=== PATIENT | male | born 1965 | race African-American/Black ===

== ENCOUNTER 2017-10-11 17:34 | Outpatient (RCR) | payer OTHER, SELFPAY | END 2017-10-19 23:59 | LOC: NS 17:34 | PROVIDERS: Family Provider Internal Medicine; PCP Internal Medicine; Visit Provider Internal Medicine | DX: E66.09 Other obesity due to excess calories (principal); Z68.34 Body mass index [BMI] 34.0-34.9, adult; I10 Essential (primary) hypertension; R73.02 Impaired glucose tolerance (oral); Z71.3 Dietary counseling and surveillance | CPT/HCPCS: 97803 ==

== ENCOUNTER 2017-11-08 17:12 | Outpatient (RCR) | payer OTHER, SELFPAY ==
[2016-10-10 01:48] VITALS: BMI 34.4
[2016-10-10 03:46] VITALS: BP 132/75
== END 2017-11-16 23:59 ==
LOC: NS 17:12
PROVIDERS: Family Provider Internal Medicine; PCP Internal Medicine; Visit Provider Internal Medicine
DX: E66.09 Other obesity due to excess calories (principal); Z68.34 Body mass index [BMI] 34.0-34.9, adult; I10 Essential (primary) hypertension; R73.02 Impaired glucose tolerance (oral); Z71.3 Dietary counseling and surveillance
CPT/HCPCS: 97803

== ENCOUNTER 2017-11-22 17:15 | Outpatient (RCR) | payer OTHER, SELFPAY | END 2017-12-17 23:59 | LOC: NS 17:15 | PROVIDERS: Family Provider Internal Medicine; PCP Internal Medicine; Visit Provider Internal Medicine | DX: E66.09 Other obesity due to excess calories (principal); Z68.34 Body mass index [BMI] 34.0-34.9, adult; I10 Essential (primary) hypertension; R73.02 Impaired glucose tolerance (oral); Z71.3 Dietary counseling and surveillance | CPT/HCPCS: 97803 ==

== ENCOUNTER 2017-12-27 17:27 | Outpatient (RCR) | payer OTHER, SELFPAY | END 2018-01-16 23:59 | LOC: NS 17:27 | PROVIDERS: Family Provider Internal Medicine; PCP Internal Medicine; Visit Provider Internal Medicine | DX: E66.09 Other obesity due to excess calories (principal); Z68.34 Body mass index [BMI] 34.0-34.9, adult; I10 Essential (primary) hypertension; R73.02 Impaired glucose tolerance (oral); Z71.3 Dietary counseling and surveillance | CPT/HCPCS: 97803 ==

== ENCOUNTER 2018-01-25 07:55 | Outpatient (RCR) | payer OTHER, SELFPAY | END 2018-01-25 07:56 | disposition home or self-care (01) | LOC: NS 07:55 | PROVIDERS: Family Provider Internal Medicine; PCP Internal Medicine; Visit Provider Internal Medicine | DX: E66.09 Other obesity due to excess calories (principal); Z68.34 Body mass index [BMI] 34.0-34.9, adult; I10 Essential (primary) hypertension; R73.02 Impaired glucose tolerance (oral); Z71.3 Dietary counseling and surveillance | CPT/HCPCS: 97803 ==

== ENCOUNTER 2020-11-28 09:36 | Outpatient (RCR) | payer OTHER, SELFPAY ==
[2016-10-10 01:48] VITALS: BMI 34.4
[2020-11-28] MEDS: COVID-19 VACC, MRNA(PFIZER)/PF 30 MCG/0.3 ML SYRINGE IM (17:21)
[2020-12-19] MEDS: COVID-19 VACC, MRNA(PFIZER)/PF 30 MCG/0.3 ML SYRINGE IM (16:42)
== END 2021-02-24 23:59 ==
LOC: IMMUN 09:36
PROVIDERS: PCP Internal Medicine; Visit Provider Family Medicine
DX: Z23 Encounter for immunization (principal)
CPT/HCPCS: 0001A; 0002A; 91300

== ENCOUNTER 2021-03-07 10:52 | Emergency (ER) | payer OTHER, SELFPAY ==
[2021-03-07 10:53] VITALS: BP 203/108; PULSE 76; RESP 16; TEMP 36.1; O2SAT 96; BMI 36.6
--- NOTE | 2021-03-07 11:09 | EKG12_ITS ---
Test Reason : CP Blood Pressure : / mmHG Vent. Rate : 071 BPM Atrial Rate : 071 BPM P-R Int : 154 ms QRS Dur : 088 ms QT Int : 366 ms P-R-T Axes : 061 034 040 degrees QTc Int : 397 ms Normal sinus rhythm Minimal voltage criteria for LVH, may be normal variant Borderline ECG Confirmed by ABEBE GOLDBERG, MEGAN ([id number]), brands editor ELY NESBITT ([id number]) on 03/09/2021 10:40:58 A M Referred By: ERMIAS Confirmed By:YESENIA LOMAS MD
--- NOTE | 2021-03-07 11:09 | CT_ITS ---
STUDY: CT BRAIN WITHOUT CONTRAST REASON FOR EXAM: Male, 55 years old. Paresthesias. RADIATION DOSAGE (If Supplied By Facility): CTDIvol = ( 44.99 ) mGy, DLP = ( 798.92 ) mGycm TECHNIQUE: Transaxial CT imaging of the brain was performed without administration of intravenous contrast material. Individualized dose optimization techniques were used for this CT. COMPARISON: No relevant priors. FINDINGS: Normal soft tissue structures. Normal calvarium. Normal size ventricles and extra-axial spaces for the patient''s age. Normal white matter tracts of the cerebral hemispheres. Small calcification in the left roblero radiata. There are also parenchymal calcifications in the right sylvian fissure and within the sulci of the right temporal and parietal lobes. Normal basal ganglia and thalami. Normal brainstem. Normal cerebellum. There is no intracranial hemorrhage. There are no findings of an acute ischemic infarction. Normal visualized paranasal sinuses. CT/Brain/Head without Contrast IMPRESSION: 1. No evidence for acute intracranial or calvarial abnormality. 2. Multiple small calcifications within the brain. Question neural cysticercosis or toxoplasmosis. Electronically Signed: Bartolo Peres DO at 12:29 EDT Tel [phone], Service support ,
--- NOTE | 2021-03-07 11:17 | EX.ED.DYSGE1 ---
HPI History of Present Illness Chief Complaint: Neuro S/Sx Informant: patient Onset/Context/Timing Onset: Days (2) Context: Gradual Onset Timing: Continuous Quality: Pressure Location: Chest, head Worsened by: Nothing Relieved by: Xanax Narrative Narrative: Patient presents with chest pain and headache and left facial numbness that began 2 days ago. Patient states it resolved 2 days ago but then came back again today. Patient checked his blood pressure at home and it was 212/112. Patient states that when he had the episode 2 days ago he took a Xanax which relieved his symptoms. Patient describes his pain as a pressure over the left side of his chest. Patient also admits to some pressure in his head. Patient states he did take his blood pressure medicines this morning. Patient denies any shortness of breath or cough. Patient denies any fevers or chills. Patient denies any diaphoresis. [facility] Medical History (Updated 03/07/21 @ 11:[address] Willie Zarate DO) Anxiety Diabetes mellitus History of hiatal hernia Hypertension Home Medications alprazolam 0.5 mg PO PRN PRN 09/19/14 [History Last Taken Unknown] aspirin 162 mg PO DAILY@0800 09/19/14 [History Last Taken 07/07/16] lisinopril 10 mg PO DAILY 09/19/14 [History Last Taken 07/07/16] ascorbic acid (vitamin C) [Vitamin C] 500 mg PO DAILY 03/07/21 [History Last Taken Unknown] bisoprolol-hydrochlorothiazide 1 tab PO DAILY 03/07/21 [History Last Taken Unknown] buspirone [BuSpar] 30 mg PO BID 03/07/21 [History Last Taken Unknown] ergocalciferol (vitamin D2) [Vitamin D2] 10 mcg PO DAILY 03/07/21 [History Last Taken Unknown] fluoxetine [Prozac] 20 mg PO DAILY 03/07/21 [History Last Taken Unknown] pantoprazole 40 mg PO DAILY 03/07/21 [History Last Taken Unknown] vitamin B complex 1 cap PO DAILY 03/07/21 [History Last Taken Unknown] Allergy/AdvReac Type Severity Reaction Status Date / Time codeine AdvReac Nausea Verified 03/07/21 11:01 Surgical History History of nasal surgery Social History Smoking Status: Never smoker ROS ROS ED Constitutional Constitutional ED: Denies chills or fever(s) Eyes Eyes: Denies blurry vision or change in vision ENT ENT ED: Denies rhinorrhea or sore throat Cardiovascular Cardiovascular: Reports chest pain; Denies palpitations Respiratory/Chest Respiratory/Chest: Denies cough or dyspnea Gastrointestinal Gastrointestinal: Denies nausea or vomiting Genitourinary Genitourinary ED: Reports urinary frequency; Denies dysuria or hematuria Musculoskeletal Musculoskeletal: Denies back pain or neck pain Integumentary Denies abscess or rash Neurologic Neurologic: Reports headache(s); Denies weakness Allergic/Immunologic Allergic/Immunologic ED: Denies mouth swelling or urticaria EXAM Physical Exam Const Vital Signs: 03/07/21 10:53 03/07/21 13:27 03/07/21 14:30 Temperature 97 F L Temperature Source Temporal Pulse Rate 76 64 64 Respiratory Rate 16 18 17 Blood Pressure 203/108 H 174/101 H 177/94 H Blood Pressure Mean 139 125 121 Pulse Ox 96 98 97 Oxygen Delivery Method Room Air Room Air Room Air 03/07/21 15:14 Temperature Temperature Source Pulse Rate 65 Respiratory Rate 20 H Blood Pressure 164/91 H Blood Pressure Mean 115 Pulse Ox 98 Oxygen Delivery Method Room Air Positive well nourished and well developed General Appearance ED: well developed HEENT Reports moist mucous membranes Eyes PERRL and EOMs intact bilaterally Neck supple and no JVD Chest Wall inspection of chest normal and palpation of chest normal Resp normal respiratory effort and clear to auscultation bilaterally Cardio regular rate, regular rhythm and no murmurs GI normal to inspection, nondistended, normoactive bowel sounds and non-tender Palpation: soft Extremity normal to inspection General Extremety ED: Negative for edema or tenderness General Extremity: Negative for edema Neuro oriented x3 and CN's II-XII intact bilaterally Neuro Narrative: There is some mild decrease sensation to light touch over the left forehead. There are no other sensory deficits noted. Sensorium / Orientation: alert Motor Exam: strength 5/5 throughout Psych mental status grossly normal Skin no rashes or lesions noted MDM MDM MDM Narrative Medical decision making narrative: CBC was within normal limits. PT with INR and PTT were normal. Comprehensive metabolic profile was essentially normal. Troponin was normal. EKG was obtained. On my interpretation, it showed a normal sinus rhythm with a rate of 71. [place] interval, QRS interval, and QTc intervals were all normal. [place] was normal. There are no acute ST or T wave changes. Portable 1 view chest x-ray was obtained. On my interpretation, lung [place] are clear. There is normal cardiac silhouette. Bony thorax is normal. There is no acute process noted. Radiologist also interpreted the x-ray and agrees. CT scan of the brain was obtained. There is no acute intracranial abnormality. This was interpreted by the radiologist and reviewed by myself. Patient was given a dose of clonidine here. Patient's blood pressure improved to 164/91. Patient states his symptoms have completely resolved. Patient was instructed to follow-up with his primary care physician in 3 to 5 days for further management of his blood pressure. Patient understood and was agreeable with the plan. All questions were answered. Lab Data Attestation: I reviewed the patient's lab results. Labs: Laboratory Results - last 24 hr 03/07/21 03/07/21 03/07/21 11:20 11:20 11:20 WBC 6.4 RBC 5.35 Hgb 16.1 Hct 47.6 MCV 89.0 MCH 30.1 MCHC 33.8 RDW Std Deviation 44.4 H RDW Coeff of Blair 13.6 Plt Count 237 MPV 10.5 Immature Gran % (Auto) 0.300 Neut % (Auto) 45.1 L Lymph % (Auto) 41.3 H Allen % (Auto) 10.0 Eos % (Auto) 2.5 Baso % (Auto) 0.8 Absolute Neuts (auto) 2.9 Absolute Lymphs (auto) 2.64 Nucleated RBC % 0 PT 13.8 INR 1.1 APTT 27.0 Sodium 140 Potassium 3.9 Chloride 106 Carbon Dioxide 28.0 Anion Gap 6 BUN 19 H Creatinine 1.28 Estim Creat Clear Calc 60.25 Est GFR (MDRD) Af Amer 75 Est GFR (MDRD) Non-Af 62 BUN/Creatinine Ratio 14.8 Glucose 97 Calcium 8.9 Total Bilirubin 0.40 AST 22 ALT 31 Alkaline Phosphatase 84 Troponin I < 0.015 Total Protein 7.7 Albumin 3.3 Globulin 4.4 H Albumin/Globulin Ratio 0.8 L Radiography Chest X-Ray - ED: 1 View, Read by ED Physician, Read by Radiologist and Normal Diagnostic Testing: Radiology Impression Brain CT 03/07/21 11:09 IMPRESSION: 1. No evidence for acute intracranial or calvarial abnormality. 2. Multiple small calcifications within the brain. Question neural cysticercosis or toxoplasmosis. Electronically Signed: Bartolo Peres DO at 12:29 EDT Tel [phone], Service support , Chest X-Ray 03/07/21 11:41 IMPRESSION: No active pulmonary disease. Electronically Signed: Srinivasa Castaneda MD at 12:40 EDT Tel , Service support , EKG Initial EKG: Attestation: I personally reviewed and interpreted this EKG as follows: Interpretation: Sinus Rhythm (71) and No Acute Injury Pattern Prior EKG tracings: available for review Prior: Unchanged (10/10/2016) Discharge Plan Triage Chief Complaint: Neuro S/Sx Other Complaint: Chest Pain ED Provider: Willie Zarate Dx/Rx/DC Orders Clinical Impression: Hypertension Instructions: ED Hypertension, Established Prescriptions: No Action lisinopril 20 MG tablet 10 mg PO DAILY RF: 0 alprazolam 0.25 MG tablet 0.5 mg PO PRN PRN (Reason: Anxiety) RF: 0 aspirin 81 MG tablet 162 mg PO DAILY@0800 RF: 0 bisoprolol-hydrochlorothiazide 10-6.25 mg Tablet 1 tab PO DAILY RF: 0 ascorbic acid (vitamin C) [Vitamin C] 500 mg Tablet 500 mg PO DAILY RF: 0 buspirone [BuSpar] 30 mg Tablet 30 mg PO BID RF: 0 fluoxetine [Prozac] 20 mg Capsule 20 mg PO DAILY RF: 0 vitamin B complex Capsule 1 cap PO DAILY RF: 0 Vitamin D2 1,000 unit Capsule 10 mcg PO DAILY RF: 0 pantoprazole 20 MG tablet,delayed release (DR/EC) 40 mg PO DAILY RF: 0 Primary Care Provider: Tucker Pham Referrals: Tucker Pham MD [Primary Care Provider] - 3-5 Days Disposition Disposition: Home, self care
[2021-03-07 11:21] VITALS: BMI 36.6
[2021-03-07] MEDS: Aspirin 81 MG TAB.CHEW 162 MG PO (11:23)
[2021-03-07 11:35] LABS: Absolute Lymphocyte Count 2.64 X10^3/uL (0.83-4.51); Absolute Neutrophil Count 2.9 X10^3/uL (2.0-7.7); Basophil# 0.05 X10^3/uL; Basophil% 0.8 % (0-1); Eosinophil# 0.16 X10^3/uL; Eosinophils% 2.5 % (0-5); Hematocrit 47.6 % (40-54); Hemoglobin 16.1 g/dL (13.0-16.5); Lymphocyte # 2.64 X10^3/ul (0.83-4.51); Lymphocyte % 41.3 % (19-41); Mean Corp Hgb Conc 33.8 g/dL (32-36); Mean Corpuscular Hgb 30.1 pg (27.0-32.0); Mean Platelet Vol. 10.5 fl (6.2-12.0); Monocyte# 0.64 X10^3/uL; NRBC Flagged by Analyzer 0 % (0-5); Neutrophil # 2.88 X10^3/uL (2.7-7.7); Neutrophil % 45.1 % (47-70); Platelet Count 237 K/mm3 (150-450); RBC Distribution Width CV 13.6 % (11.6-14.6); RBC Distribution Width SD 44.4 fl (35.1-43.9); Red Blood Count 5.35 M/mm3 (4.6-6.2); White Blood Count 6.4 K/mm3 (4.4-11.0)
--- NOTE | 2021-03-07 11:41 | RAD_ITS ---
STUDY: X-RAY CHEST REASON FOR EXAM: Male, 55 years old. Chest pain TECHNIQUE: Single AP portable view of the chest. COMPARISON: 10/10/2016. FINDINGS: The lungs are clear and expanded. There is no demonstrated pleural abnormality. Normal size heart. Normal mediastinum and miguel angel. Normal visualized pulmonary arteries. Normal visualized aortic arch and descending thoracic aorta. The thoracic spine is not well-seen. Normal visualized ribs, clavicles, and shoulders. There is no demonstrated abnormality of the visualized soft tissue structures of the upper abdomen. RAD/Chest 1 View (Portable) IMPRESSION: No active pulmonary disease. Electronically Signed: Srinivasa Castaneda MD at 12:40 EDT Tel , Service support ,
[2021-03-07 11:53] LABS: ALB/GLOB Ratio 0.8 RATIO (0.9-2.4); AST(SGOT) 22 U/L (15-37); Alanine Aminotransfer ALT/SGPT 31 U/L (16-61); Albumin, Serum 3.3 g/dL (3.2-5.0); Alkaline Phosphatase 84 U/L (45-117); Anion Gap 6 (5-15); BUN 19 mg/dL (7-18); BUN/Creat Ratio 14.8 RATIO (10-20); Calcium,Total 8.9 mg/dL (8.5-10.1); Chloride 106 mmol/L (98-107); Creatinine, Serum 1.28 mg/dL (0.70-1.30); EST Glomerular Filtration Rate 62 mL/min (>60); Est Glom Filt Rate - Afr Amer 75 mL/min (>60); Estimated Creatinine Clearance 60.25 ml/min; Globulin 4.4 g/dL (2.2-4.2); Glucose 97 mg/dL (74-106); Potassium 3.9 mmol/L (3.5-5.1); Protein, Total 7.7 g/dL (6.4-8.2); Sodium Level 140 mmol/L (136-145)
[2021-03-07 11:59] LABS: International Normalized Ratio 1.1; Prothrombin Time (Protime)PT. 13.8 SECONDS (11.7-14.9)
[2021-03-07 13:27] VITALS: BP 174/101; PULSE 64; RESP 18; O2SAT 98
[2021-03-07] MEDS: cloNIDine HCl 0.1 MG Tablet PO (13:27)
[2021-03-07 14:30] VITALS: BP 177/94; PULSE 64; RESP 17; O2SAT 97
[2021-03-07 15:14] VITALS: BP 164/91; PULSE 65; RESP 20; O2SAT 98
[2021-03-07 15:54] VITALS: BP 143/87; PULSE 60; RESP 17; O2SAT 96
== END 2021-03-07 15:57 | disposition home or self-care (01) ==
PROVIDERS: Emergency Provider Emergency Medicine; PCP Internal Medicine
DX: I10 Essential (primary) hypertension (principal); Z79.82 Long term (current) use of aspirin; Z79.899 Other long term (current) drug therapy
CPT/HCPCS: 70450; 71045; 80053; 84484; 85025; 85610; 85730; 93005; 99285; A4216

== ENCOUNTER 2021-05-26 17:04 | Emergency (ER) | payer OTHER, SELFPAY ==
[2021-05-26 17:05] VITALS: BP 160/94; PULSE 90; RESP 16; TEMP 37.2; O2SAT 94; BMI 35.5
--- NOTE | 2021-05-26 18:58 | EDS_ITS ---
HPI History of Present Illness Chief Complaint: Lower Extremity Injury Informant: patient Onset/Context/Timing Onset: Weeks Context: Gradual Onset Timing: Waxes and wanes Current Severity: Mild Maximum Severity: Moderate Narrative Narrative: Patient presents with left leg pain. He has had left leg pain for the past month, pointing to the left hip and states that shoots down his left leg. He was seen by a chiropractor in [place] when he was on vacation. After returning home he saw his physician here. He was given a prednisone taper, gabapentin, diclofenac. Patient states that today he noted the left calf to be swollen and was concerned for possible clot. The pain from the hip has improved but is still present below the knee. [facility] Medical History Anxiety Diabetes mellitus History of hiatal hernia Hypertension Home Medications alprazolam 0.5 mg PO PRN PRN 09/19/14 [History Last Taken Unknown] aspirin 162 mg PO DAILY@0800 09/19/14 [History Last Taken 07/07/16] lisinopril 10 mg PO DAILY 09/19/14 [History Last Taken 07/07/16] ascorbic acid (vitamin C) [Vitamin C] 500 mg PO DAILY 03/07/21 [History Last Taken Unknown] bisoprolol-hydrochlorothiazide 1 tab PO DAILY 03/07/21 [History Last Taken Unknown] buspirone [BuSpar] 30 mg PO BID 03/07/21 [History Last Taken Unknown] ergocalciferol (vitamin D2) [Vitamin D2] 10 mcg PO DAILY 03/07/21 [History Last Taken Unknown] fluoxetine [Prozac] 20 mg PO DAILY 03/07/21 [History Last Taken Unknown] pantoprazole 40 mg PO DAILY 03/07/21 [History Last Taken Unknown] vitamin B complex 1 cap PO DAILY 03/07/21 [History Last Taken Unknown] rivaroxaban [Xarelto] 15 mg PO BID #42 tab 05/26/21 [Rx Last Taken Unknown] Allergy/AdvReac Type Severity Reaction Status Date / Time codeine AdvReac Nausea Verified 05/26/21 17:06 Surgical History History of nasal surgery Social History Smoking Status: Never smoker ROS ROS ED Constitutional Constitutional ED: Denies chills or fever(s) Eyes Eyes: Denies change in vision ENT ENT ED: Denies sore throat Cardiovascular Cardiovascular: Denies chest pain Respiratory/Chest Respiratory/Chest: Denies cough or dyspnea Gastrointestinal Gastrointestinal: Denies abdominal pain, diarrhea, nausea or vomiting Genitourinary Genitourinary ED: Denies dysuria Musculoskeletal Musculoskeletal: Reports arthralgias; Denies back pain Integumentary Denies rash Neurologic Neurologic: Denies headache(s) or weakness Psychiatric Psychiatric: Denies anxiety or depression Allergic/Immunologic Allergic/Immunologic ED: Denies urticaria EXAM Physical Exam Const Vital Signs: 05/26/21 17:05 Temperature 98.9 F Temperature Source Temporal Pulse Rate 90 Respiratory Rate 16 Blood Pressure 160/94 H Blood Pressure Mean 116 Pulse Ox 94 Oxygen Delivery Method Room Air Positive well nourished and well developed General Appearance ED: well developed HEENT Reports normocephalic and head/scalp atraumatic Eyes PERRL and EOMs intact bilaterally Neck supple Chest Wall inspection of chest normal and palpation of chest normal Resp normal respiratory effort and clear to auscultation bilaterally Cardio regular rate and regular rhythm GI normal to inspection, nondistended, normoactive bowel sounds Palpation: soft Extremity Extremity Narrative: 3+ left lower extremity edema to the left calf. No erythema. No palpable cords. Strong distal pulses. Neuro oriented x3 and no sensory deficits noted Sensorium / Orientation: alert Motor Exam: strength 5/5 throughout Psych mental status grossly normal Skin no rashes or lesions noted MDM MDM MDM Narrative Medical decision making narrative: Venous ultrasound of the left lower extremity is obtained. Treatment and Re-Evaluation Comments:: Per survey cad technician, patient is positive for DVT from the popliteal and distal. Test results discussed with the patient. He will be started on Xarelto, first dose given here. Return instructions are provided. He will follow-up with his PCP within the next 1 to 2 weeks. Discharge Plan Triage Chief Complaint: Lower Extremity Injury ED Provider: Araceli Santoro Dx/Rx/DC Orders Clinical Impression: DVT (deep venous thrombosis) Instructions: ED Deep Vein Thrombosis (DVT) Prescriptions: New Xarelto 15 mg tablet 15 mg PO BID Qty: 42 RF: 0 No Action lisinopril 20 MG tablet 10 mg PO DAILY RF: 0 alprazolam 0.25 MG tablet 0.5 mg PO PRN PRN (Reason: Anxiety) RF: 0 aspirin 81 MG tablet 162 mg PO DAILY@0800 RF: 0 bisoprolol-hydrochlorothiazide 10-6.25 mg Tablet 1 tab PO DAILY RF: 0 ascorbic acid (vitamin C) [Vitamin C] 500 mg Tablet 500 mg PO DAILY RF: 0 buspirone [BuSpar] 30 mg Tablet 30 mg PO BID RF: 0 fluoxetine [Prozac] 20 mg Capsule 20 mg PO DAILY RF: 0 vitamin B complex Capsule 1 cap PO DAILY RF: 0 Vitamin D2 1,000 unit Capsule 10 mcg PO DAILY RF: 0 pantoprazole 20 MG tablet,delayed release (DR/EC) 40 mg PO DAILY RF: 0 Primary Care Provider: Tucker Pham Referrals: Tucker Pham MD [Primary Care Provider] - 1-2 Weeks Disposition Disposition: Home, Self Care
--- NOTE | 2021-05-26 19:00 | US_ITS ---
We are attempting to reach an attending provider to discuss findings. An addendum with communication details will be sent when the communication is complete. EXAM: US Duplex Left Lower Extremity Veins CLINICAL INDICATION: LT LOWER LEG SWELLING TECHNIQUE: Real-time duplex ultrasound scan of the left lower extremity veins integrating B-mode two-dimensional vascular structure, Doppler spectral analysis, color flow Doppler imaging and compression. COMPARISON: None. FINDINGS: Deep veins: Acute DVT in the left popliteal vein extending into the tibioperoneal trunk. There is also acute DVT in the posterior tibial and peroneal veins. Superficial veins: Unremarkable. No thrombus in the visualized great saphenous vein. Soft tissues: Soft tissue edema lower leg. No popliteal cyst. US/Venous Duplex Imag/Limited/Uni IMPRESSION: Acute DVT in the left popliteal vein extending into the tibioperoneal trunk. There is also acute DVT in the posterior tibial and peroneal veins. ASSESSMENT: CRITICAL report - There are critical findings in this report that will likely impact patient care. A conference call has been initiated to alert the referring caregiver of the critical findings. Electronically Signed: Evans Cordova MD at 20:58 EDT Tel , Service support ,
[2021-05-26] MEDS: Rivaroxaban 15 MG Tablet PO (20:22)
== END 2021-05-26 20:26 | disposition home or self-care (01) ==
PROVIDERS: Emergency Provider Emergency Medicine; PCP Internal Medicine
DX: I82.412 Acute embolism and thrombosis of left femoral vein (principal); F32.9 Major depressive disorder, single episode, unspecified; E11.9 Type 2 diabetes mellitus without complications; I10 Essential (primary) hypertension; Z79.899 Other long term (current) drug therapy
CPT/HCPCS: 93971; 99283

== ENCOUNTER 2021-06-02 15:57 | Emergency (ER) | payer OTHER, SELFPAY ==
[2021-06-02 15:57] VITALS: BP 177/94; PULSE 100; RESP 16; TEMP 36.6; O2SAT 98; BMI 35.4
--- NOTE | 2021-06-02 16:51 | US_ITS ---
HISTORY: SWELLING-LT LOWER LEG EXAMINATION: US Venous Duplex LE Unilat / Limited: TECHNIQUE: Alexander scale, pulse wave, and color flow Doppler imaging was performed of the lower extremity venous system. The bilateral greater saphenous, common femoral, femoral, popliteal, peroneal and posterior tibial veins were interrogated. COMPARISON: 05/26/21 FINDINGS: # of images incl. paperwork: 25 Right lower extremity: There is normal compression, augmentation, and color flow signal throughout the visualized deep lower extremity veins. Left lower extremity: Persistent occlusive thrombus in the popliteal vein extending into the peroneal and posterior tibial veins. Overall appearance similar to prior study. From the common femoral vein to the distal superficial femoral vein there is normal compression, flow and augmentation. US/Venous Duplex Imag/Limited/Uni IMPRESSION: Persistent DVT from the left popliteal vein through the left peroneal and posterior tibial veins. Findings unchanged from prior study. No sonographic evidence of deep venous thrombosis in the right lower extremity. at 1759 Reported and signed by: Elvis Starks MD Electronically Signed: Elvis Starks MD at 17:58 EDT Tel , Service support ,
[2021-06-02 18:03] LABS: Absolute Lymphocyte Count 1.74 X10^3/uL (0.83-4.51); Absolute Neutrophil Count 4.6 X10^3/uL (2.0-7.7); Basophil# 0.05 X10^3/uL; Basophil% 0.7 % (0-1); Eosinophil# 0.13 X10^3/uL; Eosinophils% 1.8 % (0-5); Hematocrit 43.3 % (40-54); Hemoglobin 14.2 g/dL (13.0-16.5); Lymphocyte # 1.74 X10^3/ul (0.83-4.51); Lymphocyte % 24.2 % (19-41); Mean Corp Hgb Conc 32.8 g/dL (32-36); Mean Corpuscular Hgb 29.8 pg (27.0-32.0); Mean Platelet Vol. 9.8 fl (6.2-12.0); Monocyte# 0.65 X10^3/uL; NRBC Flagged by Analyzer 0 % (0-5); Neutrophil # 4.61 X10^3/uL (2.7-7.7); Neutrophil % 64.2 % (47-70); Platelet Count 274 K/mm3 (150-450); RBC Distribution Width CV 14.1 % (11.6-14.6); RBC Distribution Width SD 46.9 fl (35.1-43.9); Red Blood Count 4.76 M/mm3 (4.6-6.2); White Blood Count 7.2 K/mm3 (4.4-11.0)
[2021-06-02 18:12] LABS: International Normalized Ratio 1.4; Prothrombin Time (Protime)PT. 16.4 SECONDS (11.7-14.9)
[2021-06-02 18:13] LABS: Partial Thromboplast Time 30.6 Seconds (24.1-36.2)
[2021-06-02 18:17] LABS: Anion Gap 6 (5-15); BUN 16 mg/dL (7-18); BUN/Creat Ratio 16.8 RATIO (10-20); Calcium,Total 8.8 mg/dL (8.5-10.1); Chloride 109 mmol/L (98-107); Creatinine, Serum 0.95 mg/dL (0.70-1.30); EST Glomerular Filtration Rate 86 mL/min (>60); Est Glom Filt Rate - Afr Amer 105 mL/min (>60); Estimated Creatinine Clearance 80.21 ml/min; Glucose 85 mg/dL (74-106); Potassium 3.7 mmol/L (3.5-5.1); Sodium Level 142 mmol/L (136-145)
--- NOTE | 2021-06-02 18:30 | EX.ED.DYSGE1 ---
HPI History of Present Illness Chief Complaint: Rash Narrative Narrative: Patient presenting for evaluation secondary to a skin rash. Patient has a underlying history of being diagnosed with a provoked DVT around a week ago, started on Xarelto. Patient states that he has been dealing with pain from his knee down which is where his clot is. He states that he has edema that typically is dependent and gets better at night with elevation. Patient states that over the course last couple of days however he has developed a rash on his legs and he was concerned about it he called his primary care doctor who recommended that he come to the emergency department. Patient denies any chest pain. Denies any shortness of breath. Denies that he is missed any of his anticoagulant doses. The DVT was provoked by long travel on an airplane. No infectious signs or symptoms such as fevers. Review of systems otherwise negative. [facility] Medical History Anxiety Diabetes mellitus History of hiatal hernia Hypertension Home Medications alprazolam 0.5 mg PO PRN PRN 09/19/14 [History Last Taken Unknown] aspirin 162 mg PO DAILY@0800 09/19/14 [History Last Taken 07/07/16] lisinopril 10 mg PO DAILY 09/19/14 [History Last Taken 07/07/16] ascorbic acid (vitamin C) [Vitamin C] 500 mg PO DAILY 03/07/21 [History Last Taken Unknown] bisoprolol-hydrochlorothiazide 1 tab PO DAILY 03/07/21 [History Last Taken Unknown] buspirone [BuSpar] 30 mg PO BID 03/07/21 [History Last Taken Unknown] ergocalciferol (vitamin D2) [Vitamin D2] 10 mcg PO DAILY 03/07/21 [History Last Taken Unknown] fluoxetine [Prozac] 20 mg PO DAILY 03/07/21 [History Last Taken Unknown] pantoprazole 40 mg PO DAILY 03/07/21 [History Last Taken Unknown] vitamin B complex 1 cap PO DAILY 03/07/21 [History Last Taken Unknown] rivaroxaban [Xarelto] 15 mg PO BID #42 tab 05/26/21 [Rx Last Taken Unknown] rivaroxaban [Xarelto] 15 mg PO DAILY 06/02/21 [History Last Taken Unknown] Allergy/AdvReac Type Severity Reaction Status Date / Time codeine AdvReac Nausea Verified 06/02/21 15:59 Surgical History History of nasal surgery Social History Smoking Status: Never smoker ROS ROS ED Constitutional Constitutional ED: Denies chills or fever(s) ENT ENT ED: Denies rhinorrhea Cardiovascular Cardiovascular: Denies chest pain Respiratory/Chest Respiratory/Chest: Denies cough or dyspnea Gastrointestinal Gastrointestinal: Denies abdominal pain, diarrhea, nausea or vomiting Genitourinary Genitourinary ED: Denies dysuria or hematuria Musculoskeletal Musculoskeletal: Reports other Details: Left leg pain and swelling Integumentary Reports rash Neurologic Neurologic: Denies paresthesias or weakness Psychiatric Psychiatric: Denies depression Endocrine Endocrinology: Denies fatigue Allergic/Immunologic Allergic/Immunologic ED: Denies urticaria EXAM Physical Exam Const Vital Signs: 06/02/21 15:57 Temperature 97.8 F Temperature Source Temporal Pulse Rate 100 Respiratory Rate 16 Blood Pressure 177/94 H Blood Pressure Mean 121 Pulse Ox 98 Oxygen Delivery Method Room Air Positive well nourished and well developed General Appearance ED: well developed and NAD HEENT Reports moist mucous membranes Negative for trauma or tenderness Eyes EOMs intact bilaterally Neck no lymphadenopathy, supple and no JVD Chest Wall inspection of chest normal Resp normal respiratory effort and clear to auscultation bilaterally Cardio regular rate, regular rhythm, no murmurs and peripheral pulses 2+ throughout GI normal to inspection, nondistended, normoactive bowel sounds, non-tender and no masses Palpation: soft Back/Spine normal to inspection Extremity Extremity Narrative: Examination the patient's left leg shows swelling from the knee to the foot. The compartments are soft but there is some edema noted. Normal distal pulses and sensation. There is a petechial rash noted over the patient's pretibial area. General Extremety ED: Yes tenderness Neuro oriented x3 and no sensory deficits noted Sensorium / Orientation: alert Motor Exam: strength 5/5 throughout Psych mental status grossly normal Skin no rashes or lesions noted MDM MDM MDM Narrative Medical decision making narrative: Patient presented with a development of a petechial rash on his leg in the setting of DVT. Laboratory work-up shows normal platelets normal coagulation profile no significant evidence of electrolyte derangement or renal dysfunction. I did perform a duplex to make sure that the patient did not have further propagation of his clot, his clot is stable currently. Patient at this point just has a petechial rash associated with his DVT this likely is associated with venous congestion and swelling he was given reassurance he was recommended to continue his treatment regimen the patient was discharged in stable condition. Lab Data Labs: Laboratory Results - last 24 hr 06/02/21 06/02/21 06/02/21 17:49 17:49 17:49 WBC 7.2 RBC 4.76 Hgb 14.2 Hct 43.3 MCV 91.0 MCH 29.8 MCHC 32.8 RDW Std Deviation 46.9 H RDW Coeff of Blair 14.1 Plt Count 274 MPV 9.8 Immature Gran % (Auto) 0.100 Neut % (Auto) 64.2 Lymph % (Auto) 24.2 [place] % (Auto) 9.0 Eos % (Auto) 1.8 Baso % (Auto) 0.7 Absolute Neuts (auto) 4.6 Absolute Lymphs (auto) 1.74 Nucleated RBC % 0 PT 16.4 H INR 1.4 APTT 30.6 Sodium 142 Potassium 3.7 Chloride 109 H Carbon Dioxide 27.0 Anion Gap 6 BUN 16 Creatinine 0.95 Estim Creat Clear Calc 80.21 Est GFR (MDRD) Af Amer 105 Est GFR (MDRD) Non-Af 86 BUN/Creatinine Ratio 16.8 Glucose 85 Calcium 8.8 Radiography Diagnostic Testing: Radiology Impression Venous Duplex 06/02/21 16:51 IMPRESSION: Persistent DVT from the left popliteal vein through the left peroneal and posterior tibial veins. Findings unchanged from prior study. No sonographic evidence of deep venous thrombosis in the right lower extremity. at 1759 Reported and signed by: Elvis Starks MD Electronically Signed: Elvis Starks MD at 17:58 EDT Tel , Service support , Discharge Plan Triage Chief Complaint: Rash ED Provider: Yassine Kim Dx/Rx/DC Orders Clinical Impression: DVT (deep venous thrombosis) Instructions: ED Deep Vein Thrombosis (DVT) Prescriptions: No Action lisinopril 20 MG tablet 10 mg PO DAILY RF: 0 alprazolam 0.25 MG tablet 0.5 mg PO PRN PRN (Reason: Anxiety) RF: 0 aspirin 81 MG tablet 162 mg PO DAILY@0800 RF: 0 bisoprolol-hydrochlorothiazide 10-6.25 mg Tablet 1 tab PO DAILY RF: 0 ascorbic acid (vitamin C) [Vitamin C] 500 mg Tablet 500 mg PO DAILY RF: 0 buspirone [BuSpar] 30 mg Tablet 30 mg PO BID RF: 0 fluoxetine [Prozac] 20 mg Capsule 20 mg PO DAILY RF: 0 vitamin B complex Capsule 1 cap PO DAILY RF: 0 Vitamin D2 1,000 unit Capsule 10 mcg PO DAILY RF: 0 pantoprazole 20 MG tablet,delayed release (DR/EC) 40 mg PO DAILY RF: 0 Xarelto 15 mg tablet 15 mg PO BID Qty: 42 RF: 0 Xarelto 15 mg tablet 15 mg PO DAILY RF: 0 Primary Care Provider: Tucker Pham Referrals: Tucker Pham MD [Primary Care Provider] - 1-2 Weeks Disposition Disposition: Home, Self Care
[2021-06-02 18:52] VITALS: BP 129/88; PULSE 72; RESP 17; O2SAT 98
== END 2021-06-02 18:53 | disposition home or self-care (01) ==
PROVIDERS: Emergency Provider Emergency Medicine; PCP Internal Medicine
DX: I82.432 Acute embolism and thrombosis of left popliteal vein (principal); I82.452 Acute embolism and thrombosis of left peroneal vein; I82.442 Acute embolism and thrombosis of left tibial vein; F41.9 Anxiety disorder, unspecified; I10 Essential (primary) hypertension; Z79.02 Long term (current) use of antithrombotics/antiplatelets; Z79.899 Other long term (current) drug therapy
CPT/HCPCS: 36415; 80048; 85025; 85610; 85730; 93971; 99282

== ENCOUNTER 2023-07-29 17:19 | Emergency (ER) | payer OTHER, SELFPAY ==
[2023-07-29 17:22] VITALS: BP 148/84; PULSE 83; RESP 14; TEMP 36.6; O2SAT 98; BMI 37.3
--- NOTE | 2023-07-29 18:24 | US_ITS ---
INDICATION: PAIN LEFT LEG. H/O DVT EXAMINATION: Ultrasound US Venous Duplex LLE Unilat / Limited TECHNIQUE: Alexander scale, pulse wave, and color flow Doppler imaging was performed of the lower extremity venous system. The bilateral greater saphenous, common femoral, femoral, and popliteal veins were interrogated. COMPARISON: FINDINGS: There is noncompression of the popliteal vein. There is normal compression, augmentation, and signal throughout the remaining visualized deep lower extremity veins. No mass or fluid collection. US/Venous Duplex Imag/Limited/Uni IMPRESSION: Popliteal deep venous thrombosis. Electronically Signed: Harvey Damon DO at 19:40 EST Reading Location ID and State: [facility] / [place] Tel [phone], Service support ,
--- NOTE | 2023-07-29 18:40 | ED.VIS.LOWEX ---
HPI History of Present Illness HPI Narrative: Patient presents with pain to his left calf that has been getting worse over the past 2 to 3 weeks. Patient states he has a history of DVTs in the past and is concerned that he has a DVT. Patient states he was on Xarelto for approximately 1 year and then was stopped. Patient describes his pain as dull and aching. Patient states it has been constant over the past 2 to 3 weeks. Patient states it is worse with standing and better with rest. Patient denies any paresthesias or weakness. Patient denies any trauma or injury. Patient denies any fevers or chills. Patient denies any chest pain or shortness of breath. Chief Complaint: Lower Extremity Injury Onset/Context/Timing Onset: Weeks (2-3) Context: Gradual Onset Timing: Continuous Quality of Pain: Dull and Aching Location: Left calf Worsened by: Standing and ambulating Relieved by: Rest Associated Symptoms Associated Symptoms: Negative for Parasthesia, Weakness or Loss of Funtion PFSH [facility] Medical History Anxiety Diabetes mellitus History of hiatal hernia Hypertension Home Medications alprazolam 0.25 mg tablet 0.5 mg PO PRN PRN Anxiety 09/19/14 [History Last Taken Unknown] aspirin 81 mg tablet,delayed release 162 mg PO DAILY@0800 09/19/14 [History Last Taken 07/07/16] lisinopril 20 mg tablet 10 mg PO DAILY 09/19/14 [History Last Taken 07/07/16] ascorbic acid (vitamin C) 500 mg tablet (Vitamin C) 500 mg PO DAILY 03/07/21 [History Last Taken Unknown] bisoprolol 10 mg-hydrochlorothiazide 6.25 mg tablet 1 tab PO DAILY 03/07/21 [History Last Taken Unknown] buspirone 30 mg tablet 30 mg PO BID 03/07/21 [History Last Taken Unknown] ergocalciferol (vitamin D2) 1,000 unit capsule 10 mcg PO DAILY 03/07/21 [History Last Taken Unknown] fluoxetine 20 mg capsule (Prozac) 20 mg PO DAILY 03/07/21 [History Last Taken Unknown] pantoprazole 20 mg tablet,delayed release 40 mg PO DAILY 03/07/21 [History Last Taken Unknown] vitamin B complex 1 cap PO DAILY 03/07/21 [History Last Taken Unknown] rivaroxaban 15 mg tablet (Xarelto) 15 mg PO BID #42 tabs 05/26/21 [Rx Last Taken Unknown] rivaroxaban 15 mg tablet (Xarelto) 15 mg PO DAILY 06/02/21 [History Last Taken Unknown] rivaroxaban 15 mg tablet (Xarelto) 15 mg PO BID #42 TABLETS 07/29/23 [Rx Last Taken Unknown] Allergy/AdvReac Type Severity Reaction Status Date / Time codeine AdvReac Nausea Verified 07/29/23 17:22 Surgical History History of nasal surgery Social History Smoking Status: Never smoker ROS ROS ED Constitutional Constitutional ED: Denies chills or fever(s) Eyes Eyes: Denies blurry vision or change in vision ENT ENT ED: Denies rhinorrhea or sore throat Cardiovascular Cardiovascular: Denies chest pain or palpitations Respiratory/Chest Respiratory/Chest: Reports cough; Denies dyspnea Gastrointestinal Gastrointestinal: Denies nausea or vomiting Genitourinary Genitourinary ED: Denies dysuria or hematuria Musculoskeletal Musculoskeletal: Denies back pain or neck pain Integumentary Denies abscess or rash Neurologic Neurologic: Denies headache(s) or weakness Allergic/Immunologic Allergic/Immunologic ED: Denies mouth swelling or urticaria EXAM Physical Exam Const Vital Signs: 07/29/23 17:22 Temperature 98 F Temperature Source Temporal Pulse Rate 83 Respiratory Rate 14 Blood Pressure 148/84 H Blood Pressure Mean 105 Pulse Ox 98 Oxygen Delivery Method Room Air Positive well nourished and well developed General Appearance ED: well developed and NAD HEENT Reports moist mucous membranes Neck full ROM and supple Extremity Extremity Narrative: There is mild tenderness over the left calf. There is no edema. There is no ecchymosis. There is no bony crepitance or step-off. There is no pain with dorsiflexion of the ankle. Pedal pulses are equal bilaterally. Sensation was intact to light touch bilaterally in the lower extremities. Strength is 5/5 bilaterally in the lower extremities. Neuro oriented x3, CN's II-XII intact bilaterally, moves all extremities and no sensory deficits noted Sensorium / Orientation: alert Motor Exam: strength 5/5 throughout Psych mental status grossly normal MDM MDM MDM Narrative Medical decision making narrative: Differential diagnosis includes DVT and muscle strain. Venous duplex of the left lower extremity will be obtained to assess for DVT. Radiography Diagnostic Testing: Venous duplex of the left lower extremity was obtained. There is a DVT in the left popliteal vein. Treatment and Re-Evaluation Narrative: Patient was advised of his findings. Patient will be given a dose of Xarelto here. Patient was given a prescription for Xarelto. Patient was instructed to contact his urologist to see when he would need to stop the Xarelto prior to the prostate biopsy. Patient was instructed to follow-up with his primary care physician for further evaluation. Patient and spouse understood and were agreeable with the plan. All questions were answered. Discharge Plan Triage Chief Complaint: Lower Extremity Injury ED Provider: Willie Zarate Dx/Rx/DC Orders Clinical Impression: DVT (deep venous thrombosis), Hypertension Instructions: ED Deep Vein Thrombosis (DVT) Prescriptions: New Xarelto 15 mg tablet 15 mg PO BID Qty: 42 0RF No Action lisinopril 20 MG tablet 10 mg PO DAILY Patient Comments: blood pressure/ heart alprazolam 0.25 MG tablet 0.5 mg PO PRN PRN (Reason: Anxiety) Patient Comments: anxiety aspirin 81 MG tablet 162 mg PO DAILY@0800 Patient Comments: preventative stroke/ heart disease bisoprolol-hydrochlorothiazide 10-6.25 mg Tablet 1 tab PO DAILY ascorbic acid (vitamin C) [Vitamin C] 500 mg Tablet 500 mg PO DAILY buspirone [BuSpar] 30 mg Tablet 30 mg PO BID fluoxetine [Prozac] 20 mg Capsule 20 mg PO DAILY vitamin B complex Capsule 1 cap PO DAILY Vitamin D2 1,000 unit Capsule 10 mcg PO DAILY pantoprazole 20 MG tablet,delayed release (DR/EC) 40 mg PO DAILY Patient Comments: ACID REFLUX Xarelto 15 mg tablet 15 mg PO BID Qty: 42 0RF Xarelto 15 mg tablet 15 mg PO DAILY Patient Comments: TAKE 1 TABLET BY MOUTH TWICE DAILY Primary Care Provider: Tucker Pham Referrals: Tucker Pham MD [Primary Care Provider] - 5-7 Days Disposition Disposition: Home, Self Care
[2023-07-29] MEDS: Rivaroxaban 15 MG Tablet PO (20:06)
== END 2023-07-29 20:08 | disposition home or self-care (01) ==
PROVIDERS: Emergency Provider Emergency Medicine; PCP Internal Medicine; Visit Provider Emergency Medicine
DX: I82.432 Acute embolism and thrombosis of left popliteal vein (principal); E11.9 Type 2 diabetes mellitus without complications; I10 Essential (primary) hypertension; Z86.718 Personal history of other venous thrombosis and embolism; Z79.01 Long term (current) use of anticoagulants
CPT/HCPCS: 93971; 99282

== ENCOUNTER 2024-01-29 12:07 | Emergency (ER) | payer OTHER, SELFPAY ==
[2024-01-29 12:08] VITALS: BP 123/89; PULSE 111; RESP 18; TEMP 36.4; O2SAT 98; BMI 36.3
--- NOTE | 2024-01-29 12:34 | RAD_ITS ---
STUDY: XR Chest 1 View 01/29/2024 1:56 PM REASON FOR EXAM: Male, 58 years old. chest pain COMPARISON: None TECHNIQUE: XR Chest 1 View FINDINGS: There is no demonstrated pleural abnormality. Normal heart size. Normal mediastinum. Normal miguel angel. Prominent appearing increased interstitial lung markings. Normal visualized pulmonary arteries. There is atherosclerotic calcification of the aortic arch with tortuosity. There are diffuse degenerative changes of the visualized thoracic spine. There is degenerative osteoarthritis of the bilateral shoulders. There are no acute findings of the upper abdomen. RAD/Chest 1 View (Portable) IMPRESSION: There are no acute findings. Electronically Signed: Stas Rubi MD at 14:19 EDT ,
--- NOTE | 2024-01-29 12:36 | ED.VIS.CHEST ---
HPI History of Present Illness Chief Complaint: Chest Pain Detail of Chief Complaint: Chest pain Informant: patient Narrative Narrative: Patient presents the emergency room with complaint of chest pain that started around 6 AM today. Patient tells me he has a history of a hiatal hernia. He took a Protonix but did not really seem to help. He vomited x 3. Still has some mild discomfort currently. He had the pain right that radiated straight through to his back. Denies sick contacts. He had some chills today. Denies cough. Denies diarrhea. Denies recent travel or surgery. No heart history. Father had an DC in his 70s. [facility] Medical History Anxiety Diabetes mellitus History of hiatal hernia Hypertension Home Medications alprazolam 0.25 mg tablet 0.5 mg PO PRN PRN Anxiety 09/19/14 [History Last Taken Unknown] aspirin 81 mg tablet,delayed release 162 mg PO DAILY@0800 09/19/14 [History Last Taken 07/07/16] lisinopril 20 mg tablet 10 mg PO DAILY 09/19/14 [History Last Taken 07/07/16] ascorbic acid (vitamin C) 500 mg tablet (Vitamin C) 500 mg PO DAILY 03/07/21 [History Last Taken Unknown] bisoprolol 10 mg-hydrochlorothiazide 6.25 mg tablet 1 tab PO DAILY 03/07/21 [History Last Taken Unknown] buspirone 30 mg tablet 30 mg PO BID 03/07/21 [History Last Taken Unknown] ergocalciferol (vitamin D2) 1,000 unit capsule 10 mcg PO DAILY 03/07/21 [History Last Taken Unknown] fluoxetine 20 mg capsule (Prozac) 20 mg PO DAILY 03/07/21 [History Last Taken Unknown] pantoprazole 20 mg tablet,delayed release 40 mg PO DAILY 03/07/21 [History Last Taken Unknown] vitamin B complex 1 cap PO DAILY 03/07/21 [History Last Taken Unknown] rivaroxaban 15 mg tablet (Xarelto) 15 mg PO BID #42 tabs 05/26/21 [Rx Last Taken Unknown] rivaroxaban 15 mg tablet (Xarelto) 15 mg PO DAILY 06/02/21 [History Last Taken Unknown] rivaroxaban 15 mg tablet (Xarelto) 15 mg PO BID #42 TABLETS 07/29/23 [Rx Last Taken Unknown] Allergy/AdvReac Type Severity Reaction Status Date / Time codeine AdvReac Nausea Verified 01/29/24 12:08 Surgical History History of nasal surgery Social History Smoking Status: Never smoker ROS ROS ED Review of Systems ROS Unobtainable: other Constitutional Constitutional ED: Reports lethargy; Denies chills, fever(s), sweats or weight loss Eyes Eyes: Denies blurry vision, change in vision or diplopia ENT ENT ED: Denies rhinorrhea or sore throat Cardiovascular Cardiovascular: Reports chest pain; Denies orthopnea or racing heartbeat Respiratory/Chest Respiratory/Chest: Denies cough, dyspnea, dyspnea on exertion, orthopnea or sputum Gastrointestinal Gastrointestinal: Reports nausea and vomiting; Denies abdominal pain or diarrhea Genitourinary Genitourinary ED: Denies dysuria, hematuria or urinary frequency Musculoskeletal Musculoskeletal: Denies arthralgias, back pain, myalgias or neck pain Integumentary Denies abscess, Abrasions or rash Neurologic Neurologic: Denies headache(s) or weakness Psychiatric Psychiatric: Denies anxiety, depression or suicidal thoughts Endocrine Endocrinology: Denies polydipsia, polyphagia or polyuria Hematologic/Lymphatic Hematologic/Lymphatic: Denies easy bleeding, easy bruising or lymphadenopathy Allergic/Immunologic Allergic/Immunologic ED: Denies mouth swelling, tongue swelling or urticaria EXAM Physical Exam Const Vital Signs: 01/29/24 12:08 01/29/24 12:08 01/29/24 12:34 Temperature 97.6 F L Temperature Source Temporal Pulse Rate 111 H Respiratory Rate 18 Respiratory Effort Normal Non-Labored Blood Pressure 123/89 H Blood Pressure Mean 100 Pulse Ox 98 Oxygen Delivery Method Room Air Room Air 01/29/24 13:08 01/29/24 14:00 01/29/24 15:00 Temperature 97.9 F 97.8 F Temperature Source Temporal Temporal Pulse Rate 64 97 64 Respiratory Rate 16 16 16 Respiratory Effort Blood Pressure 168/76 H 117/92 H 126/76 H Blood Pressure Mean 106 100 92 Pulse Ox 98 94 98 Oxygen Delivery Method Room Air Room Air Room Air Positive well nourished and well developed General Appearance ED: well developed and NAD HEENT Reports TM's clear and moist mucous membranes normocephalic and atraumatic; Negative for trauma or tenderness Tympanic Membrane ED: Yes TM's clear Eyes PERRL and EOMs intact bilaterally General Eye ED: Negative for pale conjunctiva or scleral icterus Neck no lymphadenopathy, supple and no JVD General: Negative for tenderness Chest Wall inspection of chest normal and palpation of chest normal Chest: Negative for tenderness Resp normal respiratory effort and clear to auscultation bilaterally Effort and Inspection: Negative for respiratory distress or pain with movement Auscultation: Negative for rhonchi, wheezes or diminished lung sounds Cardio regular rate, regular rhythm, S1 normal heart sound, S2 normal heart sound and no murmurs Peripheral Pulses: pulses 2+ throughout GI normal to inspection, nondistended, normoactive bowel sounds, soft to palpation, non-tender, non-distended and no masses Back/Spine no CVA tenderness and no thoracic nor lumbar tenderness Extremity normal to inspection General Extremety ED: Negative for edema General Extremity: Negative for edema Neuro oriented x3, CN's II-XII intact bilaterally, no sensory deficits noted and gait normal Sensorium / Orientation: awake, alert, oriented to person, oriented to place and oriented to time Motor Exam: strength 5/5 throughout and strength abnormal Psych mental status grossly normal Skin no rashes or lesions noted and no wounds MDM MDM MDM Narrative Medical decision making narrative: Patient presents with vomiting and central chest pain. IV line established. EKG obtained on arrival showed a sinus rhythm with ventricular rate of [address] changes. In the differential would be acute coronary syndrome versus GERD versus hiatal hernia or viral gastroenteritis. CBC with differential showed white count of 9.5 with hemoglobin 17 and platelet count of 241. Chemistries unremarkable. D-dimer normal less than 0.27. BUN was 27 creatinine 1.25. LFTs were normal. Lipase normal at 51. Troponin normal at 6. CT scan of the chest and abdomen pelvis with IV and p.o. contrast ordered and results currently are pending. Care of patient turned over to evening physician awaiting CT results and final disposition. Also awaiting delta troponin. Etiology of symptoms yet unclear. I did give him a GI cocktail initially and aspirin and he vomited that and afterwards felt improved after vomiting. Symptoms seem to improve after vomiting. Also in the differential would be small bowel obstruction. Lab Data Attestation: I reviewed the patient's lab results. Labs: Laboratory Results - last 24 hr 01/29/24 12:55 WBC 9.5 RBC 5.96 Hgb 17.3 H Hct 52.1 MCV 87.4 MCH 29.0 MCHC 33.2 RDW Std Deviation 49.5 H RDW Coeff of Blair 16.0 H Plt Count 241 MPV 9.7 Immature Gran % (Auto) 0.500 Neut % (Auto) 84.8 H Lymph % (Auto) 8.7 L [place] % (Auto) 5.0 Eos % (Auto) 0.6 Baso % (Auto) 0.4 Absolute Neuts (auto) 8.0 H Absolute Lymphs (auto) 0.82 L Nucleated RBC % 0 D-Dimer Quant (PE/DVT) < 0.27 L Sodium 139 Potassium 4.0 Chloride 103 Carbon Dioxide 27.0 Anion Gap 9 BUN 27 H Creatinine 1.25 Estim Creat Clear Calc 73.64 Est GFR (MDRD) Af Amer 76 Est GFR (MDRD) Non-Af 63 BUN/Creatinine Ratio 21.6 H Glucose 118 H Calcium 9.2 Total Bilirubin 0.70 Direct Bilirubin 0.12 AST 28 ALT 29 Alkaline Phosphatase 76 Troponin I High Sens 8 Total Protein 8.1 Albumin 3.3 Globulin 4.8 H Lipase 51 Radiography Diagnostic Testing: Clinical Impression(s) from Imaging Studies Chest X-Ray 01/29/24 12:34 IMPRESSION: There are no acute findings. Electronically Signed: Stas Rubi MD at 14:19 EDT Reading Location ID and State: [facility] / [place] , Service support , 1 view chest x-ray obtained interpreted by myself no evidence of infiltrate or pneumothorax or acute disease process. Radiology in agreement. EKG Initial EKG: Attestation: I personally reviewed and interpreted this EKG as follows: Comments: Sinus rhythm with ventricular rate of [address] changes Discharge Plan Triage Chief Complaint: Chest Pain ED Provider: Cali Escalera Dx/Rx/DC Orders Clinical Impression: Chest pain Instructions: ED Chest Pain, Uncertain Cause Prescriptions: No Action lisinopril 20 MG tablet 10 mg PO DAILY Patient Comments: blood pressure/ heart alprazolam 0.25 MG tablet 0.5 mg PO PRN PRN (Reason: Anxiety) Patient Comments: anxiety aspirin 81 MG tablet 162 mg PO DAILY@0800 Patient Comments: preventative stroke/ heart disease bisoprolol-hydrochlorothiazide 10-6.25 mg Tablet 1 tab PO DAILY ascorbic acid (vitamin C) [Vitamin C] 500 mg Tablet 500 mg PO DAILY buspirone [BuSpar] 30 mg Tablet 30 mg PO BID fluoxetine [Prozac] 20 mg Capsule 20 mg PO DAILY vitamin B complex Capsule 1 cap PO DAILY Vitamin D2 1,000 unit Capsule 10 mcg PO DAILY pantoprazole 20 MG tablet,delayed release (DR/EC) 40 mg PO DAILY Patient Comments: ACID REFLUX Xarelto 15 mg tablet 15 mg PO BID Qty: 42 0RF Xarelto 15 mg tablet 15 mg PO DAILY Patient Comments: TAKE 1 TABLET BY MOUTH TWICE DAILY Xarelto 15 mg tablet 15 mg PO BID Qty: 42 0RF Primary Care Provider: Tucker Pham Referrals: Tucker Pham MD [Primary Care Provider] -
[2024-01-29 13:00] LABS: Absolute Lymphocyte Count 0.82 X10^3/uL (0.83-4.51); Basophil# 0.04 X10^3/uL; Basophil% 0.4 % (0-1); Eosinophil# 0.06 X10^3/uL; Eosinophils% 0.6 % (0-5); Hematocrit 52.1 % (40-54); Hemoglobin 17.3 g/dL (13.0-16.5); Lymphocyte # 0.82 X10^3/ul (0.83-4.51); Lymphocyte % 8.7 % (19-41); Mean Corp Hgb Conc 33.2 g/dL (32-36); Mean Corpuscular Volume 87.4 fL (80-94); Mean Platelet Vol. 9.7 fl (6.2-12.0); Monocyte# 0.47 X10^3/uL; NRBC Flagged by Analyzer 0 % (0-5); Neutrophil # 8.02 X10^3/uL (2.7-7.7); Neutrophil % 84.8 % (47-70); Platelet Count 241 K/mm3 (150-450); RBC Distribution Width SD 49.5 fl (35.1-43.9); Red Blood Count 5.96 M/mm3 (4.6-6.2); White Blood Count 9.5 K/mm3 (4.4-11.0)
[2024-01-29 13:08] VITALS: BP 168/76; PULSE 64; RESP 16; TEMP 36.6; O2SAT 98
[2024-01-29 13:23] LABS: AST(SGOT) 28 U/L (15-37); Alanine Aminotransfer ALT/SGPT 29 U/L (16-61); Albumin, Serum 3.3 g/dL (3.2-5.0); Alkaline Phosphatase 76 U/L (45-117); Anion Gap 9 (5-15); BUN 27 mg/dL (7-18); BUN/Creat Ratio 21.6 RATIO (10-20); Bilirubin, Direct 0.12 mg/dL (0.00-0.30); Calcium,Total 9.2 mg/dL (8.5-10.1); Chloride 103 mmol/L (98-107); Creatinine, Serum 1.25 mg/dL (0.70-1.30); EST Glomerular Filtration Rate 63 mL/min (>60); Est Glom Filt Rate - Afr Amer 76 mL/min (>60); Estimated Creatinine Clearance 73.64 ml/min; Globulin 4.8 g/dL (2.2-4.2); Glucose 118 mg/dL (74-106); Lipase 51 U/L (13-75); Protein, Total 8.1 g/dL (6.4-8.2); Sodium Level 139 mmol/L (136-145); Troponin-I HS (w/2H Reflex) 8 pg/mL (3.0-78.0)
[2024-01-29] MEDS: Aspirin 81 MG TAB.CHEW 324 MG PO (13:36)
[2024-01-29] MEDS: Mag Hydrox/Al Hydrox/Simeth 30 ML UDC PO (13:37)
[2024-01-29] MEDS: 0.9% Normal Saline (1000mL) 1,000 ML 150 ML IV (13:41)
[2024-01-29 14:00] VITALS: BP 117/92; PULSE 97; RESP 16; TEMP 36.6; O2SAT 94
[2024-01-29] MEDS: Ondansetron 4 MG/2 ML Vial IV (14:00)
[2024-01-29 14:20] LABS: D-Dimer Quantitative (DVT/PE) < 0.27 FEU/ug/m (0.27-0.49)
--- NOTE | 2024-01-29 14:35 | CT_ITS ---
We are attempting to reach an attending provider to discuss findings. An addendum with communication details will be sent when the communication is complete. EXAM: CT CHEST, ABDOMEN AND PELVIS WITH INTRAVENOUS CONTRAST CLINICAL INDICATION: chest and abdomen pain with vomitting TECHNIQUE: Helically acquired images were obtained of the chest, abdomen and pelvis with intravenous contrast. This CT exam was performed using one or more of the following dose reduction techniques: automated exposure control, adjustment of the mA and/or kV according to patient size, and/or use of iterative reconstruction technique. CONTRAST: IV 100mL Isovue-370 RADIATION DOSE: CTDIvol = 19.73 mGy, DLP = 1920.60 mGy-cm COMPARISON: No relevant prior studies available. FINDINGS: CHEST: LUNGS AND PLEURAL SPACES: Right upper lobe calcified granuloma. There is no pneumothorax. There is no demonstrated pleural abnormality. Filling defect in the second order branch of the right lower lobe pulmonary artery. No mass. HEART: Unremarkable. Heart size is normal. No pericardial effusion. MEDIASTINUM: Unremarkable. No mediastinal or hilar adenopathy. Esophagus is unremarkable. No hiatal hernia. THYROID: The thyroid is heterogenous. It contains nodules. This should be further evaluated with ultrasound. This can be performed as an outpatient. ABDOMEN: LIVER: Normal liver. GALLBLADDER AND BILE DUCTS: Unremarkable. No calcified gallstones. No gallbladder distention or wall edema. No intra- or extrahepatic biliary ductal dilation. Normal gallbladder and extrahepatic biliary system. PANCREAS: Unremarkable. No focal cystic or solid mass. Normal pancreas. SPLEEN: Unremarkable. Normal spleen. ADRENALS: Unremarkable. Normal bilateral adrenal glands. KIDNEYS AND URETERS: Bilateral renal peripelvic cysts. No hydronephrosis. STOMACH AND BOWEL: Stool throughout the colon. No stomach or bowel distention. No focal inflammatory change. Normal visualized stomach. Normal small intestine. PELVIS: APPENDIX: The appendix is visualized and appears normal. BLADDER: The urinary bladder is distended. This can suggest urinary retention. REPRODUCTIVE: There is enlargement of the prostate gland. CHEST, ABDOMEN and PELVIS: INTRAPERITONEAL SPACE: Unremarkable. No ascites or other fluid collection. No free air. BONES/JOINTS: There are degenerative changes of the shoulders. There are diffuse degenerative changes of the visualized lumbar spine. No suspicious lytic or blastic abnormality. SOFT TISSUES: There is an umbilical hernia containing fat. VASCULATURE: There are calcifications of the abdominal aorta. This is consistent for atherosclerotic disease. There is no abdominal aortic aneurysm. Normal aorta arch and descending thoracic aorta. LYMPH NODES: Unremarkable. No enlarged lymph nodes. CT/CT Chest, Abd, Pel w/Contrast IMPRESSION: 1. The thyroid is heterogenous. It contains nodules. This should be further evaluated with ultrasound. This can be performed as an outpatient. 2. Right pulmonary emboli. No heart strain. 3. The urinary bladder is distended. This can suggest urinary retention. Electronically Signed: Stas Rubi MD at 16:39 EDT ,
[2024-01-29 14:58] LABS: Reflex Troponin-HS? (from REC) Y
[2024-01-29 15:00] VITALS: BP 126/76; PULSE 64; RESP 16; O2SAT 98
[2024-01-29 16:28] VITALS: BP 133/84; PULSE 96; RESP 21; O2SAT 96
[2024-01-29 16:39] LABS: Troponin-I HS 7 pg/mL (3.0-78.0)
== END 2024-01-29 18:11 | disposition home or self-care (01) ==
PROVIDERS: Emergency Provider Emergency Medicine; PCP Internal Medicine; Visit Provider Emergency Medicine
DX: R07.9 Chest pain, unspecified (principal); E11.9 Type 2 diabetes mellitus without complications; I10 Essential (primary) hypertension
CPT/HCPCS: 71045; 71260; 74177; 80048; 80076; 83690; 84484; 85025; 85379; 93005; 96361; 96374; 99285; J7030; Q9967; A4216; J2405

== ENCOUNTER → 2024-07-20 | Outpatient (CLI) | payer OTHER, SELFPAY ==
--- NOTE | 2024-07-20 07:59 | VDLE_ITS ---
Reason For Study: Hx of DVT LLE RIGHT LEFT CFV is compressible, spontaneous, phasic, GSV is normal. competent and demonstrates normal CFV is compressible, spontaneous, phasic, augmentation. competent, and demonstrates normal Procedure augmentation. This is a venous duplex using B-mode, color FV is compressible, spontaneous, phasic, flow and spectral Doppler. competent and demonstrates normal Exam performed in department. augmentation. A preliminary report was called and/or faxed Lt PopV and Lt T/P Trunk are partially to Amggie RN. compressible with bright intraluminal echoes consistent with chronic DVT Lt PeroV near the trunk is non dilated and partially compressible with diminished blood flow. PTV is compressible. VL/Venous Duplex US, Unilateral Interpretation Summary Chronic venous changes are noted in the left popliteal vein, tibio-peroneal felipe nk, and peroneal vein, which are partially compressible and demonstrate bright intraluminal echo genicity. The remainder of the left lower extremity deep venous system is patent and compress ible. The left common femoral vein and femoral vein are competent. The left great saphenous vein appe ars patent and compressible segmentally. The right common femoral vein is patent and compressi ble . Ordering Physician: Rudy Ponce Referring Physician: Tucker Pham Performed By: Michela Barraza RDCS, RVT
== END | disposition home or self-care (01) ==
LOC: CVS 07:51
PROVIDERS: PCP Internal Medicine; Referring Provider Internal Medicine Hematology & Oncology; Visit Provider Internal Medicine Hematology & Oncology
DX: Z86.718 Personal history of other venous thrombosis and embolism (principal)
CPT/HCPCS: 93971

== ENCOUNTER 2025-06-26 11:46 | Emergency (ER) | payer OTHER, SELFPAY ==
[2025-06-26] VITALS (10 sets, daily range): BP systolic 141–152; BP diastolic 87–102; PULSE 62–80; RESP 14–19; TEMP 36.7–36.8; O2SAT 95–100; BMI 35.6
--- NOTE | 2025-06-26 12:34 | EDS_ITS ---
HPI History of Present Illness Chief Complaint: Chest Pain Informant: patient Onset/Context/Timing Onset: Days (2) Context: Sudden Onset Timing: Intermittent Quality: Pressure Location: Substernal Worsened by: Nothing Relieved by: Nothing Narrative Narrative: Patient presents with chest pain that has been intermittent for the past 2 days. Patient states it became worse while he was at work today. Patient states he felt unsteady while he was standing. Patient admits to some pressure in his middle of his chest. Patient states nothing makes it worse and nothing makes it better. Patient states he did feel some palpitations with this. Patient denies any nausea or vomiting. Patient denies any diaphoresis. Patient denies any fevers or chills. [facility] Medical History Scalp contusion Closed head injury without concussion Diabetes mellitus History of hiatal hernia Anxiety Hypertension Home Medications ?Medication ?Instructions ?Recorded ?Last Taken ?Type losartan 50 mg tablet 50 mg PO BID 04/30/25 Unknow n History Allergy/AdvReac Type Severity Reaction Status Date / Time azithromycin (From z pack) Allergy Chest Verified 06/26/25 11:49 tightness codeine AdvReac Nausea Verified 04/30/25 08:11 Surgical History History of nasal surgery Social History Smoking Status: Never smoker alcohol intake: never ROS ROS ED Constitutional Constitutional ED: Denies chills or fever(s) Eyes Eyes: Denies blurry vision or change in vision ENT ENT ED: Denies rhinorrhea or sore throat Cardiovascular Cardiovascular: Reports chest pain and palpitations Respiratory/Chest Respiratory/Chest: Denies cough or dyspnea Gastrointestinal Gastrointestinal: Denies nausea or vomiting Genitourinary Genitourinary ED: Denies dysuria or hematuria Musculoskeletal Musculoskeletal: Denies back pain or neck pain Integumentary Denies abscess or rash Neurologic Neurologic: Reports headache(s); Denies weakness Allergic/Immunologic Allergic/Immunologic ED: Denies mouth swelling or urticaria EXAM Physical Exam Const Vital Signs: 06/26/25 11:47 Temperature 98.2 F Temperature Source Oral Pulse Rate 76 Respiratory Rate 18 Blood Pressure 141/102 H Blood Pressure Mean 115 Pulse Ox 98 Oxygen Delivery Method Room Air Positive well nourished and well developed General Appearance ED: well developed and NAD HEENT Reports moist mucous membranes Neck supple and no JVD Chest Wall palpation of chest normal Resp normal respiratory effort and clear to auscultation bilaterally Cardio regular rate and regular rhythm GI non-tender and non-distended Palpation: soft Extremity normal to inspection General Extremety ED: Negative for edema or tenderness General Extremity: Negative for edema Neuro oriented x3, CN's II-XII intact bilaterally and no sensory deficits noted Sensorium / Orientation: alert Motor Exam: strength 5/5 throughout Psych mental status grossly normal MDM MDM MDM Narrative Medical decision making narrative: Differential includes cardiac dysrhythmia, cardiac ischemia, pneumonia, bronchitis, electrolyte abnormality, gastroesophageal reflux disease, and anxiety. EKG will be obtained to assess for cardiac dysrhythmia and cardiac ischemia. Chest x-ray will be obtained to assess for pneumonia and bronchitis. CBC will be obtained to assess for leukocytosis and anemia. Basic metabolic profile will be obtained to assess for electrolyte abnormality and renal functi on. High-sensitivity troponin will be obtained to assess for cardiac ischemia. 2-hour repeat high-sensitivity troponin will be obtained to assess for ongoing cardiac ischemia. History & Record Review Additional record(s) reviewed:: Prior outpatient record, Prior ED visit and Prior labs EKG Initial EKG: Attestation: I personally reviewed and interpreted this EKG as follows: Interpretation: Sinus Rhythm (75) and No Acute Injury Pattern Comments: EKG was obtained. On my independent interpretation, it showed a normal sinus rhythm with a rate of 75. GA interval, QRS interval, and QTc intervals were all normal. [place] was normal. There are no acute ST or T wave changes. Prior EKG tracings: available for review Prior: Unchanged (01/29/2024) Treatment and Re-Evaluation :: Patient was given aspirin. Patient was advised of his findings. Patient has a HEART score of 2. Patient was advised that this is low risk for acute cardiac event. Patient was instructed to follow-up with his primary care physician in 5 to 7 days. Patient was instructed to return if worse in any way. Patient understood and was agreeable with the plan. All questions were answered. Discharge Plan Triage Chief Complaint: Chest Pain Other Complaint: Dizziness ED Provider: Willie Zarate Dx/Rx/DC Orders Clinical Impression: Chest pain Instructions: ED Chest Pain, Uncertain Cause Prescriptions: No Action losartan 50 mg tablet 50 mg PO BID Stand Alone Forms: Work / School Excuse Primary Care Provider: Tucker Pham Referrals: Tucker Pham MD [Primary Care Provider, Internal Medicine] - 5-7 Days Print Language: Romansh Disposition Disposition: Home, Self Care
[2025-06-26 12:49] LABS: Hematocrit 46.4 % (40-54); Hemoglobin 16.1 g/dL (13.0-16.5); Immature Granulocytes Count 0.030 X10^3/uL (0.0-0.0); Mean Corp Hgb Conc 34.7 g/dL (32-36); Mean Corpuscular Volume 87.7 fL (80-94); Mean Platelet Vol. 9.5 fl (6.2-12.0); NRBC Flagged by Analyzer 0 % (0-5); Platelet Count 223 K/mm3 (150-450); RBC Distribution Width CV 14.1 % (11.6-14.6); RBC Distribution Width SD 45.4 fl (35.1-43.9); Red Blood Count 5.29 M/mm3 (4.6-6.2); White Blood Count 7.3 K/mm3 (4.4-11.0)
--- NOTE | 2025-06-26 12:53 | RAD_ITS ---
PROCEDURE: CHEST PA AND LATERAL 06/26/2025 REASON FOR EXAM: CHEST PAIN TECHNIQUE: Procedure Code: RADCXR Modality: DX Procedure: CHEST PA AND LATERAL COMPARISON: 01/29/2024. FINDINGS: The heart is normal in size. The lungs are clear. No acute osseous abnormalities. RAD/Chest PA and Lateral IMPRESSION: NO ACUTE FINDINGS. Reading Location: [id number]
[2025-06-26 13:15] LABS: Anion Gap 11 (5-15); BUN 20 mg/dL (4-19); BUN/Creat Ratio 19.5 RATIO (10-20); Calcium,Total 8.9 mg/dL (7.6-11.0); Carbon Dioxide 26.4 mmol/L (21.0-32.0); Chloride 101 mmol/L (98-108); Estimated Creatinine Clearance 86.27 ml/min (50-250); Glucose 115 mg/dL (70-99); Potassium 3.3 mmol/L (3.3-5.1); Troponin T High Sensitivity 9 ng/L (<=22)
[2025-06-26 14:54] LABS: Troponin T High Sens 2 HR 9 ng/L (<=22)
== END 2025-06-26 15:44 | disposition home or self-care (01) ==
PROVIDERS: Emergency Provider Emergency Medicine; PCP Internal Medicine; Visit Provider Emergency Medicine
DX: R07.9 Chest pain, unspecified (principal); E11.9 Type 2 diabetes mellitus without complications; R42 Dizziness and giddiness; I10 Essential (primary) hypertension
CPT/HCPCS: 71046; 80048; 84484; 85025; 93005; 99284; A4216